=== PATIENT | female | born 1990 | race Caucasian/White ===

== ENCOUNTER → 2018-11-13 | Outpatient (REF) ==
[~2018-11-13] MED LIST: PRM25T PO; TRAM50TA2 PO
== END | disposition home or self-care (01) ==
LOC: RAD 15:50
PROVIDERS: ATTEND Family Medicine

== ENCOUNTER → 2018-11-13 | Outpatient (REF) | END | disposition home or self-care (01) | LOC: RAD 16:10 | PROVIDERS: ATTEND Family Medicine ==